=== PATIENT | female | born 1980 | race Two or more races ===

== ENCOUNTER 2023-05-23 11:33 | Emergency (ER) | payer OTHER ==
[~2023-05-23] VITALS: Ht 157.5 cm; Wt 69.5 kg
[2023-05-23 12:34] VITALS: BP 117/85; PULSE 82; RESP 16; TEMP 98.8; O2SAT 99
[2023-05-23] MEDS ORDERED: NAPR-746 PO (13:50)
== END 2023-05-23 13:54 | disposition home or self-care (01) ==
LOC: ER 11:33
DX: S53.491A Other sprain of right elbow, initial encounter (principal); W22.8XXA Striking against or struck by other objects, initial encounter; Y93.89 Activity, other specified; Y92.89 Other specified places as the place of occurrence of the external cause; Y99.8 Other external cause status
CPT/HCPCS: 73080